=== PATIENT | female | born 1980 | race Caucasian/White ===

== ENCOUNTER → 2017-01-13 | Outpatient (CLI) | payer OTHER ==
--- NOTE | 2017-01-13 16:24 | KCIC ---
Pelvic ultrasound Clinical Indication:Left pelvic pain.. . TRANSABDOMINAL SCAN Uterus measures 8.9 cm longitudinal by 4.6 cm AP by 5.9 cm transverse. Endometrial stripe measures 21 mm and appears homogeneous. Left ovary measures about 2.6 cm long axis with positive blood flow. Right ovary not seen. TRANSVAGINAL SCAN Uterus: No uterine or endometrial abnormality is seen Right ovary: 2.4 cm long axis. Positive blood flow. Left ovary: Contains a complex nodule or cyst measuring 22 mm long axis. Free fluid: None visualized IMPRESSION: 1. Left ovarian lesion, may represent a complex or hemorrhagic cyst measuring 2.2 cm. Recommend short-term follow-up ultrasound in several weeks. 2. No sonographic abnormality of uterus or right ovary. Electronically signed by: Davide Smith MD (01/13/2017 4:20 PM) [facility]
== END | disposition home or self-care (01) ==
LOC: KCIC US 14:39
PROVIDERS: ATTEND Obstetrics & Gynecology
DX: R10.2 Pelvic and perineal pain (principal)
CPT/HCPCS: 76830; 76856

== ENCOUNTER → 2020-07-22 | Outpatient (CLI) | payer BC, OTHER ==
--- NOTE | 2020-07-23 11:42 | RAD ---
DATE: 07/22/2020 8:39 AM EXAM: MAMMO HELEN SCREENING BILATERAL HISTORY: Screening COMPARISON: None. This is a baseline Bilateral CC and MLO views of the breasts were performed. Bilateral breast tomosynthesis was performed in CC and MLO projections. This study was interpreted with the benefit of Computerized Aided Detection (CAD). FINDINGS: Breast Density: SCATTERED The breast parenchyma shows scattered fibroglandular densities. Breast parenchyma level B No suspicious masses, microcalcifications or architectural distortion is present to suggest malignancy in either breast. The visualized axillae are unremarkable. IMPRESSION: No mammographic evidence of malignancy. BI-RADS CATEGORY: 1 NEGATIVE RECOMMENDED FOLLOW-UP: 12M 12 MONTH FOLLOW-UP Annual screening mammography is recommended, unless clinically indicated sooner based on symptoms or change in physical exam. PQRS compliance statement: Patient information was entered into a reminder system with a target due date for the next mammogram. Mammography is a sensitive method for finding small breast cancers, but it does not detect them all and is not a substitute for careful clinical examination. A negative mammogram does not negate a clinically suspicious finding and should not result in delay in biopsying a clinically suspicious abnormality. "Our facility is accredited by the [employer] Mammography Program."
== END ==
LOC: MAMMO 10:17
PROVIDERS: ATTEND Advanced Practice Midwife
DX: Z12.31 Encounter for screening mammogram for malignant neoplasm of breast (principal)
CPT/HCPCS: 77063; 77067